=== PATIENT | male | born 1945 | race Caucasian/White ===

== ENCOUNTER 2020-08-11 07:13 | Day surgery (SDC) | payer OTHER ==
[2020-08-10 14:21] LABS: Absolute Lymphocytes (CBC) 1.1 K/uL (0.7-4.9); Basophils % 0.8 % (0-1.3); Hematocrit 16.4 % (39.6-49.0); Lymphocytes % 22.9 % (15.3-44.8); MPV 7.7 fL (7.6-11.3); RBC Red Blood Cell Count 1.89 M/uL (4.33-5.43)
[2020-08-11] MEDS ORDERED: NA CHLORIDE 0.9% 250 ML ONE ×2 (08:25→10:45)
[2020-08-11 10:03] VITALS: BP 153/61; TEMP 97.9; O2SAT 100; BMI 3222.1
[2020-08-11] MEDS ORDERED: FUROSEMIDE 40 MG/4 ML VIAL ONE (10:44)
[2020-08-11 15:10] LABS: Hematocrit 25.6 % (39.6-49.0)
== END 2020-08-11 15:04 | disposition home or self-care (01) ==
LOC: DS 07:13
PROVIDERS: ATTEND Internal Medicine Gastroenterology
DX: D50.9 Iron deficiency anemia, unspecified (principal); K92.1 Melena
CPT/HCPCS: 85025; 36415 ×2; 86900; 86850; 86901; 85018; 85014; 36430; J1940; P9016 ×2; J7050 ×2